=== PATIENT | female | born 1965 | race Caucasian/White ===

== ENCOUNTER 2016-07-20 14:21 | Outpatient (CLI) | payer OTHER | END 2016-07-20 14:22 | disposition home or self-care (01) | DX: Z12.31 Encounter for screening mammogram for malignant neoplasm of breast (principal); Z80.3 Family history of malignant neoplasm of breast ==

== ENCOUNTER 2016-08-11 07:16 | Outpatient (CLI) | payer OTHER | END 2016-08-11 07:17 | DX: Z51.81 Encounter for therapeutic drug level monitoring (principal); E78.5 Hyperlipidemia, unspecified; K76.0 Fatty (change of) liver, not elsewhere classified; E11.9 Type 2 diabetes mellitus without complications ==

== ENCOUNTER 2016-08-18 09:02 | Outpatient (CLI) | payer OTHER | END 2016-08-18 23:59 | disposition home or self-care (01) | LOC: LAB.WCP 09:02 | PROVIDERS: ATTEND Physician Assistant Medical | DX: M10.9 Gout, unspecified (principal) | CPT/HCPCS: 36415; 84550 ==

== ENCOUNTER 2016-08-19 09:35 | Outpatient (CLI) | payer OTHER ==
[2016-08-19 13:44] LABS: BASOPHILS % (AUTO) 0.4 %; EOSINOPHILS # (AUTO) 0.2 10^3/uL (0.0-0.7); EOSINOPHILS % (AUTO) 2.2 %; HCT - HEMATOCRIT 41.9 % (37.0-47.0); HGB - HEMOGLOBIN 14.2 g/dL (12.0-16.0); LYMPHOCYTES # (AUTO) 3.3 10^3/uL (1.5-3.5); MEAN CORPUSCULAR HEMOGLOBIN 28.7 pg (27.0-31.0); MEAN CORPUSCULAR VOLUME 84.5 fL (81.0-99.0); MEAN PLATELET VOLUME 10.9 fL (7.9-10.8); MONOCYTES # (AUTO) 0.5 10^3/uL (0.0-1.0); MONOCYTES % (AUTO) 5.8 %; NEUTROPHILS # (AUTO) 5.1 10^3/uL (1.5-6.6); NEUTROPHILS % (AUTO) 55.6 %; RED BLOOD COUNT 4.96 10^6/uL (4.20-5.40); RED CELL DISTRIBUTION WIDTH 12.8 % (12.0-15.0); UNCORRECTED WHITE BLOOD COUNT 9.2 x10^3/uL; WHITE BLOOD COUNT 9.2 x10^3/uL (4.8-10.8)
[2016-08-19 14:26] LABS: CALCIUM 10.2 mg/dL (8.5-10.3); POTASSIUM 3.9 mmol/L (3.5-5.0); URIC ACID 3.3 mg/dL (2.6-7.2)
== END 2016-08-19 09:36 | disposition home or self-care (01) ==
LOC: LAB.WCP 09:35
PROVIDERS: ATTEND Physician Assistant Medical
DX: M79.671 Pain in right foot (principal); M10.9 Gout, unspecified; Z79.899 Other long term (current) drug therapy
CPT/HCPCS: 36415; 80048; 84550; 85025; 85651

== ENCOUNTER 2017-01-19 15:00 | Outpatient (CLI) | payer OTHER ==
[2017-01-19 13:24] LABS: H. PYLORI IGG ANTIBODY Negative (Negative); HPYLORI NEG QC Negative (Negative); HPYLORI POS QC POSITIVE (Positive)
[2017-01-19 13:25] LABS: BASOPHILS # (AUTO) 0.1 10^3/uL (0.0-0.1); BASOPHILS % (AUTO) 0.7 %; EOSINOPHILS # (AUTO) 0.2 10^3/uL (0.0-0.7); EOSINOPHILS % (AUTO) 2.1 %; HCT - HEMATOCRIT 41.9 % (37.0-47.0); HGB - HEMOGLOBIN 14.3 g/dL (12.0-16.0); LYMPHOCYTES # (AUTO) 3.5 10^3/uL (1.5-3.5); LYMPHOCYTES % (AUTO) 43.2 %; MEAN CORPUSCULAR HEMOGLOBIN 28.6 pg (27.0-31.0); MEAN CORPUSCULAR HGB CONC 34.2 g/dL (32.0-36.0); MEAN CORPUSCULAR VOLUME 83.6 fL (81.0-99.0); MEAN PLATELET VOLUME 10.1 fL (7.9-10.8); MONOCYTES # (AUTO) 0.5 10^3/uL (0.0-1.0); NEUTROPHILS # (AUTO) 3.9 10^3/uL (1.5-6.6); NUCLEATED RED BLOOD CELLS AUTO 0.1 /100WBC; RED BLOOD COUNT 5.02 10^6/uL (4.20-5.40); RED CELL DISTRIBUTION WIDTH 12.8 % (12.0-15.0); UNCORRECTED WHITE BLOOD COUNT 8.1 x10^3/uL; WHITE BLOOD COUNT 8.1 x10^3/uL (4.8-10.8)
[2017-01-19 13:57] LABS: ALBUMIN/GLOBULIN RATIO 1.7 (1.0-2.2); BILIRUBIN,TOTAL 0.6 mg/dL (0.2-1.0); CALCIUM 9.9 mg/dL (8.5-10.3); CREATININE 1.1 mg/dL (0.4-1.0); POTASSIUM 3.7 mmol/L (3.5-5.0); TOTAL PROTEIN 7.2 g/dL (6.7-8.2)
== END 2017-01-19 15:01 | disposition home or self-care (01) ==
LOC: LAB.WCP 15:00
PROVIDERS: ATTEND Physician Assistant Medical
DX: R10.13 Epigastric pain (principal)
CPT/HCPCS: 36415; 80053; 83690; 85025; 87339

== ENCOUNTER 2017-04-19 07:10 | Outpatient (CLI) | payer OTHER ==
[2017-04-19 12:30] LABS: BASOPHILS % (AUTO) 0.6 %; EOSINOPHILS # (AUTO) 0.1 10^3/uL (0.0-0.7); EOSINOPHILS % (AUTO) 1.9 %; HGB - HEMOGLOBIN 15.2 g/dL (12.0-16.0); LYMPHOCYTES # (AUTO) 2.5 10^3/uL (1.5-3.5); MEAN CORPUSCULAR HEMOGLOBIN 28.7 pg (27.0-31.0); MEAN CORPUSCULAR HGB CONC 34.2 g/dL (32.0-36.0); MEAN CORPUSCULAR VOLUME 83.9 fL (81.0-99.0); MEAN PLATELET VOLUME 10.9 fL (7.9-10.8); MONOCYTES # (AUTO) 0.4 10^3/uL (0.0-1.0); MONOCYTES % (AUTO) 5.9 %; NEUTROPHILS # (AUTO) 3.7 10^3/uL (1.5-6.6); NEUTROPHILS % (AUTO) 54.6 %; PLT - PLATELET COUNT 309 10^3/uL (130-450); RED BLOOD COUNT 5.29 10^6/uL (4.20-5.40); WHITE BLOOD COUNT 6.8 x10^3/uL (4.8-10.8)
[2017-04-19 12:49] LABS: ALBUMIN 4.4 g/dL (3.2-5.5); ALBUMIN/GLOBULIN RATIO 1.5 (1.0-2.2); ALKALINE PHOSPHATASE 106 IU/L (42-121); ALT ALANINE AMINOTRANSFERASE 41 IU/L (10-60); AST ASPARTATE AMINOTRANSFERASE 31 IU/L (10-42); BILIRUBIN,TOTAL 0.5 mg/dL (0.2-1.0); BUN - BLOOD UREA NITROGEN 17 mg/dL (6-20); CALCIUM 9.6 mg/dL (8.5-10.3); CARBON DIOXIDE - CO2 28 mmol/L (21-32); CHLORIDE 89 mmol/L (101-111); CHOL/HDL RATIO 8.6 (<4.4); CHOLESTEROL 258 mg/dL; CREATININE 1.1 mg/dL (0.4-1.0); GFR - MDRD 52 (>89); GLUCOSE 477 mg/dL (70-100); HB2 TOTAL 16.6 g/dL; HDL CHOLESTEROL 30 mg/dL; HEMOGLOBIN A1C 2.1 g/dL; HEMOGLOBIN A1C % 13.7 % (4.6-6.2); SODIUM 129 mmol/L (135-145); TOTAL PROTEIN 7.4 g/dL (6.7-8.2)
[2017-04-19 13:13] LABS: LDL CHOLESTEROL,DIRECT 147 mg/dL; LDLD/HDL RATIO 4.9 (<4.4)
== END 2017-04-19 07:11 | disposition home or self-care (01) ==
LOC: LAB.WCP 07:10
PROVIDERS: ATTEND Physician Assistant Medical
DX: E11.49 Type 2 diabetes mellitus with other diabetic neurological complication (principal); R20.2 Paresthesia of skin
CPT/HCPCS: 36415; 80053; 80061; 82607; 83036; 85025; 85651

== ENCOUNTER 2017-05-25 14:37 | Outpatient (CLI) | payer OTHER ==
[2017-05-25 18:38] LABS: BASOPHILS # (AUTO) 0.1 10^3/uL (0.0-0.1); BASOPHILS % (AUTO) 0.6 %; EOSINOPHILS # (AUTO) 0.1 10^3/uL (0.0-0.7); EOSINOPHILS % (AUTO) 1.6 %; HGB - HEMOGLOBIN 14.9 g/dL (12.0-16.0); LYMPHOCYTES # (AUTO) 3.7 10^3/uL (1.5-3.5); LYMPHOCYTES % (AUTO) 44.3 %; MEAN CORPUSCULAR HEMOGLOBIN 29.9 pg (27.0-31.0); MEAN CORPUSCULAR HGB CONC 34.6 g/dL (32.0-36.0); MEAN CORPUSCULAR VOLUME 86.3 fL (81.0-99.0); MEAN PLATELET VOLUME 11.7 fL (7.9-10.8); MONOCYTES # (AUTO) 0.5 10^3/uL (0.0-1.0); MONOCYTES % (AUTO) 6.4 %; NEUTROPHILS # (AUTO) 3.9 10^3/uL (1.5-6.6); NEUTROPHILS % (AUTO) 47.1 %; PLT - PLATELET COUNT 314 10^3/uL (130-450); RED CELL DISTRIBUTION WIDTH 12.9 % (12.0-15.0); WHITE BLOOD COUNT 8.3 x10^3/uL (4.8-10.8)
== END 2017-05-25 14:38 | disposition home or self-care (01) ==
LOC: LAB.WCP 14:37
PROVIDERS: ATTEND Physician Assistant Medical
DX: K62.5 Hemorrhage of anus and rectum (principal)
CPT/HCPCS: 36415; 85025

== ENCOUNTER 2017-07-14 13:49 | Outpatient (CLI) | payer OTHER | END 2017-07-14 13:50 | disposition home or self-care (01) | LOC: DI 13:49 | PROVIDERS: ATTEND Internal Medicine Critical Care Medicine | DX: R06.02 Shortness of breath (principal) | CPT/HCPCS: 93306 ==

== ENCOUNTER 2017-08-02 09:07 | Emergency (ER) | payer OTHER ==
[2017-08-02] MEDS ORDERED: LIDOCAINE VISCOUS 2% 15 ML UDC MM STA (09:46)
[2017-08-02] MEDS ORDERED: SODIUM CHLORIDE 0.9% 1,000 ML IV ONE ×2 (09:46→11:52)
[2017-08-02] MEDS ORDERED: MAG HYDROX/AL HYDROX/SIMETH 30 ML UDC PO STA (09:46)
--- NOTE | 2017-08-02 09:49 | ED Physician Documentation ---
PD HPI CHEST PAIN - Stated complaint Stated Complaint: CHEST PX/R SIDE PX - Chief complaint Chief Complaint: Cardiac - History obtained from History obtained from: Patient - History of Present Illness Timing - onset: How many days ago (4) Timing - onset during: Rest Timing - duration: Days (4) Timing - details: Gradual onset, Still present, Waxing and waning Quality: Pressure, Sharp Location: Substernal, Right chest Radiation: Abdominal Improved by: Nothing Worsened by: Eating Associated symptoms: Diaphoresis. No: Shortness of air, Nausea, Vomiting, Feeling faint / dizzy, General Weakness, Palpitations, Cough Similar symptoms before: No diagnosis, Work up / diagnostics (has had echo and ETT) Recently seen: Other (has had echo and ETT) - Additional information Additional information: 52-year-old female has had some right-sided chest pain for the past 2 months and she has had some workup done of this including a normal exercise treadmill test and normal echocardiogram. She continues to have this pain and over the last 4 days it is become much worse. She is having some trouble when she goes to swallow she feels an increase in this pain and since last night the pain is been persistent and constant. Review of Systems Constitutional: denies: Fever Eyes: denies: Decreased vision Ears: denies: Ear pain Nose: denies: Congestion Throat: denies: Sore throat Cardiac: reports: Chest pain / pressure. denies: Palpitations, Pedal edema, Calf pain Respiratory: denies: Dyspnea, Cough GI: reports: Abdominal Pain. denies: Nausea, Vomiting, Constipation, Diarrhea : denies: Dysuria, Frequency Skin: denies: Rash PD PAST MEDICAL HISTORY - Past Medical History Past Medical History: Yes Cardiovascular: Hypertension, High cholesterol, Other Respiratory: Asthma, COPD Neuro: Headache/migraine Endocrine/Autoimmune: Type 2 diabetes GI: GERD, Colon polyps, Other : Renal insuffiency HEENT: None Psych: Depression Musculoskeletal: Gout, Other Derm: Eczema, Other - Past Surgical History General: Colonoscopy /[employer]: section, Hysterectomy - Present Medications Home Medications: Ambulatory Orders Medication Instructions Recorded Confirmed Albuterol Sulfate [Proair Hfa] 2 puffs PO Q4H PRN 08/20/13 09/16/16 Furosemide [Lasix] 40 mg PO DAILY PRN 08/20/13 09/16/16 Lansoprazole [Prevacid] 15 mg PO DAILY 08/20/13 09/16/16 Montelukast Sodium [Singulair] 10 mg PO DAILY 08/20/13 09/16/16 Spironolactone 100 mg PO DAILY 08/20/13 09/16/16 Cholecalciferol (Vitamin D3) 3,000 unit PO DAILY 12/16/13 09/16/16 [Vitamin D-3] Ipratropium/Albuterol [Duoneb] 3 ml INH QID 12/16/13 09/16/16 Albuterol Sulfate 1.25 mg IH Q4HR PRN 06/10/15 09/16/16 Chlorthalidone 25 mg PO Q3D PRN 06/10/15 09/16/16 Colchicine [Colcrys] 0.6 mg PO BID 06/10/15 09/16/16 DULoxetine [Cymbalta] 30 mg PO DAILY 06/10/15 09/16/16 Docusate Sodium 100Mg Capsule 100 mg PO BID 06/10/15 09/16/16 [Colace] Insulin Lispro Protamin/Lispro 40 - 50 unit SQ TIDWM 06/10/15 09/16/16 [Humalog Mix 75-25 Kwikpen] Ipratropium/Albuterol Sulfate 4 gm IH QID 06/10/15 09/16/16 [Combivent Respimat Inhal [place]] LORazepam [Ativan] 0.5 mg PO BID PRN 06/10/15 09/16/16 Diltiazem HCl [Cardizem LA] 240 mg PO DAILY 07/06/16 09/16/16 Dulaglutide [Trulicity] 1.5 mg SQ Q7D 07/06/16 09/16/16 Febuxostat [Uloric] 40 mg PO DAILY 07/06/16 09/16/16 Fluticasone 44 Mcg [Flovent] 1 puffs INH BID 07/06/16 09/16/16 Tiotropium Br/Olodaterol HCl 2 inh IH DAILY 07/06/16 09/16/16 [Stiolto Respimat Inhal [place]] Insulin Lispro [Humalog] 7 - 10 unit SQ TIDWM 09/16/16 09/16/16 Sucralfate [Carafate] 1 gm PO ACHS #30 tablet 08/02/17 - Allergies Allergies/Adverse Reactions: Allergies Allergy/AdvReac Type Severity Reaction Status Date / Time acetaminophen [From Vicodin] Allergy Severe Respiratory Verified 12/16/13 12:02 aclidinium bromide * Allergy Severe Anaphylaxis Verified 12/13/13 15:23 [From Tudorza Pressair] aspirin Allergy Severe Respiratory Verified 12/16/13 12:02 hydrocodone bitartrate * Allergy Severe Respiratory Verified 12/16/13 12:02 [From Vicodin] losartan potassium * Allergy Severe Respiratory Verified 12/16/13 12:02 [From Cozaar] theophylline Allergy Severe Respiratory Verified 12/16/13 12:02 tramadol HCl * [From Ultram] Allergy Severe Respiratory Verified 12/13/13 15:22 azithromycin [From Zithromax] Allergy Intermediate Rash Verified 12/16/13 12:02 codeine Allergy Intermediate Nausea Verified 12/16/13 12:02 levofloxacin [From Levaquin] Allergy Intermediate Rash Verified 12/16/13 12:02 Alcohol-ETOH Allergy Severe Respiratory Uncoded 12/16/13 12:03 - Social History Does the pt smoke?: No Smoking Status: Never smoker PD ED PE NORMAL - Vitals Vital signs reviewed: Yes (Hypertensive diastolic mild) - General General: Alert and oriented X 3, No acute distress, Well developed/nourished - HEENT HEENT: Atraumatic, PERRL, EOMI - Neck Neck: Supple, no meningeal sign - Cardiac Cardiac: RRR, No murmur - Respiratory Respiratory: No respiratory distress, Clear bilaterally, Other (There is no specific chest wall tenderness.) - Abdomen Abdomen: Soft, Non tender, Other (There is some pain transmitted into the chest with palpation of the liver.) - Back Back: No CVA TTP, No spinal TTP - Derm Derm: Normal color, Warm and dry, No rash - Extremities Extremities: No deformity, No edema - Neuro Neuro: Alert and oriented X 3, No motor deficit, No sensory deficit, Normal speech Eye Opening: Spontaneous Motor: Obeys Commands Verbal: Oriented GCS Score: 15 - Psych Psych: Normal mood, Normal affect Results - Vitals Vitals: Vital Signs - 24 hr 08/02/17 08/02/17 09:12 11:20 Temperature 35.6 C L Heart Rate 84 80 Respiratory 17 18 Rate Blood Pressure 127/95 H 130/86 H O2 Saturation 100 98 Oxygen O2 Source Room air - EKG (time done) 0912 Rate: Rate (enter#) (86) Rhythm: NSR QRS: Low voltage Compare to prior EKG: Old EKG unavailable Computer interpretation: Agree with computer - Labs Labs: Laboratory Tests 08/02/17 08/02/17 08/02/17 09:26 09:26 09:26 WBC 9.0 RBC 5.55 H Hgb 16.1 H Hct 46.5 MCV 83.8 MCH 28.9 MCHC 34.5 RDW 12.9 Plt Count 313 MPV 10.1 Neut # 4.8 Lymph # 3.4 [place] # 0.6 Eos # 0.2 Baso # 0.1 Absolute Nucleated RBC 0.01 Nucleated RBC % 0.1 Sodium 128 L Potassium 3.0 L Chloride 85 L Carbon Dioxide 29 Anion Gap 14.0 H BUN 22 H Creatinine 1.2 H Estimated GFR (MDRD) 47 L Glucose 349 H POC Whole Bld Glucose Calcium 10.1 Total Bilirubin 0.8 AST 32 ALT 44 Alkaline Phosphatase 94 Troponin I < 0.04 Total Protein 8.5 H Albumin 5.4 Globulin 3.1 Albumin/Globulin Ratio 1.7 Lipase 27 TSH Urine Color Urine Clarity Urine pH Ur Specific [place] Urine Protein Urine Glucose (UA) Urine Ketones Urine Occult Blood Urine Nitrite Urine Bilirubin Urine Urobilinogen Ur Leukocyte Esterase Ur Microscopic Review Urine Culture Comments 08/02/17 08/02/17 08/02/17 09:26 11:40 12:44 WBC RBC Hgb Hct MCV MCH MCHC RDW Plt Count MPV Neut # Lymph # [place] # Eos # Baso # Absolute Nucleated RBC Nucleated RBC % Sodium Potassium Chloride Carbon Dioxide Anion Gap BUN Creatinine Estimated GFR (MDRD) Glucose POC Whole Bld Glucose 243 H Calcium Total Bilirubin AST ALT Alkaline Phosphatase Troponin I Total Protein Albumin Globulin Albumin/Globulin Ratio Lipase TSH 2.11 Urine Color YELLOW Urine Clarity CLEAR Urine pH 6.5 Ur Specific [place] <=1.005 Urine Protein NEGATIVE Urine Glucose (UA) >=1000 H Urine Ketones NEGATIVE Urine Occult Blood NEGATIVE Urine Nitrite NEGATIVE Urine Bilirubin NEGATIVE Urine Urobilinogen 0.2 (NORMAL) Ur Leukocyte Esterase NEGATIVE Ur Microscopic Review NOT INDICATED Urine Culture Comments NOT INDICATED - Rads (name of study) 2 view chest Radiology: Prelim report reviewed (Impression: Normal two-view chest radiography.), EMP read indepedently, See rad report CT chest angio Radiology: Prelim report reviewed (Impression: 1. Normal pulmonary CT angiogram. No pulmonary emboli. 2. Small pleural-based left lobe density. If patient's is high risk, follow-up noncontrast CT could be considered in 12 months to confirm stability.), EMP read indepedently, See rad report Procedures - IVC sono (time) 7390 Bedside IVC sono: IVC measures (cm) (1.27), IVC collapsed c insp (cm) (complete) , Dehydration (est 1 liter deficit) PD MEDICAL DECISION MAKING - ED course Complexity details: reviewed results, re-evaluated patient, considered differential, d/w patient ED course: 52-year-old female with right-sided chest pain has a worsening of this pain over the last 4 days. Here in the emergency department she is administered a GI cocktail consisting of 10 ml of viscous lidocaine and 30 mL of Mylanta and with this she has complete resolution of her pain. Her studies were concerning for a lucency on her chest x-ray and CT of the chest was obtained to rule out dissection and aneurysm in the chest. This study was negative and did not demonstrate any other abnormality within the chest to explain the patient's pain. She will need follow-up for her chest CT in a year. Departure - Departure Disposition: 01 Home, Self Care Clinical Impression: Esophagitis Condition: Stable Instructions: Esophagitis Follow-Up: Aileen Mars PA-C [Primary Care Provider] - Prescriptions: Sucralfate [Carafate] 1 gm PO ACHS #30 tablet Comments: Today you were significantly dehydrated from your diabetes. I recommend you not take your lasix and spironlolactone for 2 days and work extra hard at controlling your blood sugar. Discharge Date/Time: 08/02/17 12:50
[2017-08-02 10:06] LABS: BASOPHILS # (AUTO) 0.1 10^3/uL (0.0-0.1); BASOPHILS % (AUTO) 0.8 %; EOSINOPHILS # (AUTO) 0.2 10^3/uL (0.0-0.7); EOSINOPHILS % (AUTO) 1.7 %; HGB - HEMOGLOBIN 16.1 g/dL (12.0-16.0); LYMPHOCYTES # (AUTO) 3.4 10^3/uL (1.5-3.5); LYMPHOCYTES % (AUTO) 37.7 %; MEAN CORPUSCULAR HEMOGLOBIN 28.9 pg (27.0-31.0); MEAN CORPUSCULAR HGB CONC 34.5 g/dL (32.0-36.0); MEAN CORPUSCULAR VOLUME 83.8 fL (81.0-99.0); MEAN PLATELET VOLUME 10.1 fL (7.9-10.8); MONOCYTES # (AUTO) 0.6 10^3/uL (0.0-1.0); MONOCYTES % (AUTO) 6.5 %; NEUTROPHILS # (AUTO) 4.8 10^3/uL (1.5-6.6); NEUTROPHILS % (AUTO) 53.3 %; PLT - PLATELET COUNT 313 10^3/uL (130-450); RED BLOOD COUNT 5.55 10^6/uL (4.20-5.40); RED CELL DISTRIBUTION WIDTH 12.9 % (12.0-15.0)
[2017-08-02 10:14] LABS: ALBUMIN 5.4 g/dL (3.2-5.5); ALBUMIN/GLOBULIN RATIO 1.7 (1.0-2.2); BILIRUBIN,TOTAL 0.8 mg/dL (0.2-1.0); CALCIUM 10.1 mg/dL (8.5-10.3); CREATININE 1.2 mg/dL (0.4-1.0); TOTAL PROTEIN 8.5 g/dL (6.7-8.2)
[2017-08-02] MEDS ORDERED: POTASSIUM BICARB 25 MEQ TABLET PO STA (10:21)
--- NOTE | 2017-08-02 10:45 | XRAY Report ---
EXAM: CHEST RADIOGRAPHY EXAM DATE: 08/02/2017 10:22 AM. CLINICAL HISTORY: Right sided chest pain. COMPARISON: 05/16/2017. TECHNIQUE: 2 views. FINDINGS: Lungs/Pleura: No focal opacities evident. No pleural effusion. No pneumothorax. Normal volumes. Mediastinum: Heart and mediastinal contours are unremarkable. Other: None. IMPRESSION: Normal 2-view chest radiography. [facility] Referring Provider Line: [phone] SITE ID: [id number]
--- NOTE | 2017-08-02 10:45 | XRAY Preliminary Report ---
Exam: XR CHEST 2 VIEW X-RAY IMPRESSION: Normal 2-view chest radiography. [facility] SITE ID: [id number]
[2017-08-02] MEDS ORDERED: IOPAMIDOL-300 100 ML VIAL ONE (11:18)
[2017-08-02 11:30] VITALS: BP 130/86
[2017-08-02] MEDS ORDERED: IOPAMIDOL-300 100 ML VIAL IVP ONE (11:30)
--- NOTE | 2017-08-02 11:57 | CT Report ---
EXAM: CT ANGIOGRAM CHEST EXAM DATE: 08/02/2017 11:33 AM. CLINICAL HISTORY: Right sided chest pain. COMPARISON: No chest CT comparison. Abdomen pelvis CT 08/02/2013.. TECHNIQUE: Routine helical imaging was performed through the chest in the pulmonary arterial phase. I V Contrast: 100 cc Isovue-300. Reconstructions: Coronal 3-D MIP reconstructions.Sagittal and coronal. In accordance with CT protocol optimization, one or more of the following dose reduction techniques w ere utilized for this exam: automated exposure control, adjustment of mA and/or KV based on patient s ize, or use of iterative reconstructive technique. FINDINGS: Pulmonary Arteries: Diagnostic quality: Adequate through the segmental arteries. No evidence for acute or chronic pulmona ry emboli. RV/LV is within normal limits. There is no interventricular septal bowing. There is minimal reflux of contrast material in the IVC. Lungs/Pleura: Small triangular/linear density along the medial aspect of the upper left major fissure (5/42, sagittal image 71) likely represents focal scarring but it is not specific. Mediastinum: Normal. No cardiac enlargement or adenopathy. Thoracic Aorta: Unremarkable. Upper Abdomen: Unremarkable. Other: None. IMPRESSION: 1. Normal pulmonary CT angiogram. No pulmonary emboli. 2. Small pleural-based left upper lobe density. If the patient is high risk, a follow-up noncontrast chest CT could be considered in 12 months to confirm stability. [facility] Referring Provider Line: [phone] SITE ID: [id number]
--- NOTE | 2017-08-02 11:57 | CT Preliminary Report ---
Exam: CT CHEST ANGIO (AORTA) IMPRESSION: 1. Normal pulmonary CT angiogram. No pulmonary emboli. 2. Small pleural-based left upper lobe density. If the patient is high risk, a follow-up noncontrast chest CT could be considered in 12 months to confirm stability. [facility] SITE ID: [id number]
[2017-08-02 12:06] LABS: BILIRUBIN,URINE NEGATIVE (NEGATIVE); GLUCOSE, URINE (UA) >=1000 mg/dL (NEGATIVE); KETONES,URINE (UA) NEGATIVE (NEGATIVE); LEUKOCYTE ESTERASE, URINE NEGATIVE (NEGATIVE); NITRITE,URINE NEGATIVE (NEGATIVE); OCCULT BLOOD,URINE NEGATIVE (NEGATIVE); PH,URINE 6.5 PH (5.0-7.5); PROTEIN,URINE NEGATIVE (NEGATIVE); UROBILINOGEN,URINE 0.2 (NORMAL) E.U./dL (NORMAL)
[2017-08-02 12:07] LABS: CLARITY,URINE CLEAR (CLEAR)
== END 2017-08-02 12:50 | disposition home or self-care (01) ==
LOC: ED 09:07
DX: K20.9 Esophagitis, unspecified (principal); E11.9 Type 2 diabetes mellitus without complications; E86.0 Dehydration; I10 Essential (primary) hypertension; E78.00 Pure hypercholesterolemia, unspecified; Z79.4 Long term (current) use of insulin
CPT/HCPCS: 36415; 71046; 71275; 80053; 81003; 83690; 84443; 84484; 85025; 93005; 96360; 99284; A9270; Q9967; 81001; 87086

== ENCOUNTER 2017-08-03 08:05 | Outpatient (CLI) | payer OTHER ==
[2017-08-03 13:16] LABS: ALBUMIN 4.3 g/dL (3.2-5.5); ALBUMIN/GLOBULIN RATIO 1.6 (1.0-2.2); ALKALINE PHOSPHATASE 73 IU/L (42-121); ALT ALANINE AMINOTRANSFERASE 40 IU/L (10-60); AST ASPARTATE AMINOTRANSFERASE 35 IU/L (10-42); BILIRUBIN,TOTAL 0.7 mg/dL (0.2-1.0); BUN - BLOOD UREA NITROGEN 14 mg/dL (6-20); CALCIUM 9.4 mg/dL (8.5-10.3); CARBON DIOXIDE - CO2 28 mmol/L (21-32); CHLORIDE 95 mmol/L (101-111); CHOL/HDL RATIO 8.8 (<4.4); CHOLESTEROL 254 mg/dL; GFR - MDRD 58 (>89); GLUCOSE 312 mg/dL (70-100); HDL CHOLESTEROL 29 mg/dL; LDL CHOLESTEROL,CALCULATED 145 mg/dL; SODIUM 132 mmol/L (135-145); VLDL CHOLESTEROL 80 mg/dL
[2017-08-03 13:50] LABS: HB2 TOTAL 15.7 g/dL; HEMOGLOBIN A1C 1.7 g/dL; HEMOGLOBIN A1C % 12.1 % (4.6-6.2)
== END 2017-08-03 08:06 | disposition home or self-care (01) ==
LOC: LAB.WCP 08:05
PROVIDERS: ATTEND Physician Assistant Medical
DX: E11.49 Type 2 diabetes mellitus with other diabetic neurological complication (principal)
CPT/HCPCS: 36415; 80053; 80061; 83036; 83721

== ENCOUNTER 2017-08-31 09:50 | Outpatient (CLI) | payer OTHER ==
[2017-08-31 13:18] LABS: BASOPHILS # (AUTO) 0.1 10^3/uL (0.0-0.1); BASOPHILS % (AUTO) 0.7 %; EOSINOPHILS # (AUTO) 0.1 10^3/uL (0.0-0.7); EOSINOPHILS % (AUTO) 1.7 %; HGB - HEMOGLOBIN 15.4 g/dL (12.0-16.0); LYMPHOCYTES # (AUTO) 3.5 10^3/uL (1.5-3.5); LYMPHOCYTES % (AUTO) 42.1 %; MEAN CORPUSCULAR HEMOGLOBIN 28.8 pg (27.0-31.0); MEAN CORPUSCULAR HGB CONC 34.4 g/dL (32.0-36.0); MEAN CORPUSCULAR VOLUME 83.7 fL (81.0-99.0); MEAN PLATELET VOLUME 11.1 fL (7.9-10.8); MONOCYTES # (AUTO) 0.5 10^3/uL (0.0-1.0); MONOCYTES % (AUTO) 5.7 %; NEUTROPHILS # (AUTO) 4.2 10^3/uL (1.5-6.6); NEUTROPHILS % (AUTO) 49.8 %; PLT - PLATELET COUNT 288 10^3/uL (130-450); RED BLOOD COUNT 5.36 10^6/uL (4.20-5.40); RED CELL DISTRIBUTION WIDTH 12.5 % (12.0-15.0); WHITE BLOOD COUNT 8.4 x10^3/uL (4.8-10.8)
[2017-08-31 13:28] LABS: ALBUMIN 4.5 g/dL (3.2-5.5); ALBUMIN/GLOBULIN RATIO 1.6 (1.0-2.2); BILIRUBIN,TOTAL 0.8 mg/dL (0.2-1.0); CALCIUM 10.1 mg/dL (8.5-10.3); CREATININE 1.2 mg/dL (0.4-1.0); TOTAL PROTEIN 7.4 g/dL (6.7-8.2)
[2017-08-31 13:48] LABS: PLATELET ESTIMATE, MANUAL NORMAL (130-450,000) (NORMAL); PLATELET MORPHOLOGY 1+ GIANT PLATELETS (NORMAL); RBC MORPHOLOGY (MULTIPLE) NORMAL APPEARANCE (NORMAL)
== END 2017-08-31 09:51 | disposition home or self-care (01) ==
LOC: LAB.WCP 09:50
PROVIDERS: ATTEND Family Medicine
DX: E86.0 Dehydration (principal); R42 Dizziness and giddiness
CPT/HCPCS: 36415; 80053; 85025

== ENCOUNTER 2017-09-05 08:00 | Outpatient (CLI) | payer OTHER ==
[2017-09-05 13:34] LABS: CALCIUM 9.7 mg/dL (8.5-10.3); CREATININE 1.1 mg/dL (0.4-1.0)
== END 2017-09-05 08:01 | disposition home or self-care (01) ==
LOC: LAB.WCP 08:00
PROVIDERS: ATTEND Family Medicine
DX: E86.0 Dehydration (principal); E87.6 Hypokalemia; R42 Dizziness and giddiness
CPT/HCPCS: 36415; 80048

== ENCOUNTER 2017-10-17 11:22 | Emergency (ER) | payer OTHER ==
[2017-10-17 11:38] VITALS: BP 142/92
== END 2017-10-17 12:18 | disposition left against medical advice (07) ==
LOC: ED 11:22
DX: Z53.21 Procedure and treatment not carried out due to patient leaving prior to being seen by health care provider (principal)

== ENCOUNTER 2017-11-24 07:40 | Day surgery (SDC) | payer OTHER ==
[~2017-11-24 07:40] MED LIST: LIDO GARGLE 30 ML BOTTLE ONE; LIDO GARGLE 30 ML BOTTLE PO ONE
[2017-11-24] MEDS ORDERED: LACTATED RINGERS 1,000 ML IV ONE (08:07)
--- NOTE | 2017-11-24 08:15 | ANESTHESIA ---
Pre-Anesthesia VS, & Labs - Diagnosis GI Bleed - Procedure Colonoscopy and EGD Vital Signs: Temp Pulse Resp BP Pulse Ox 36 C L 16 126/96 H 96 11/24/17 07:49 11/24/17 07:49 11/24/17 07:49 11/24/17 07:49 Pulse 99 Height 5 ft 6 in Weight (kg) 93.6 kg Body Mass Index 33.0 - NPO >8 hours Last Fluid Intake: 530 am - Is Patient ?: No Home Medications and Allergies Home Medications: Ambulatory Orders Medication Instructions Recorded Confirmed Albuterol Sulfate [Proair Hfa] 2 puffs PO Q4H PRN 08/20/13 11/24/17 Furosemide [Lasix] 40 mg PO DAILY PRN 08/20/13 11/24/17 Lansoprazole [Prevacid] 30 mg PO BID 08/20/13 11/24/17 Montelukast Sodium [Singulair] 10 mg PO DAILY 08/20/13 11/24/17 Spironolactone 100 mg PO DAILY 08/20/13 11/24/17 Cholecalciferol (Vitamin D3) 3,000 unit PO DAILY 12/16/13 11/24/17 [Vitamin D-3] Albuterol Sulfate 1.25 mg IH Q4HR PRN 06/10/15 11/24/17 Colchicine [Colcrys] 0.6 mg PO PRN PRN 06/10/15 11/24/17 DULoxetine [Cymbalta] 60 mg PO DAILY 06/10/15 11/24/17 Ipratropium/Albuterol Sulfate 4 gm IH QID 06/10/15 11/24/17 [Combivent Respimat Inhal [place]] LORazepam [Ativan] 0.5 mg PO BID PRN 06/10/15 11/24/17 Diltiazem HCl [Cardizem LA] 240 mg PO PRN PRN 07/06/16 11/24/17 Tiotropium Br/Olodaterol HCl 2 inh IH PRN PRN 07/06/16 11/24/17 [Stiolto Respimat Inhal [place]] Insulin Lispro [Humalog] 0 - 24 unit SQ DAILY 09/16/16 11/24/17 Sucralfate [Carafate] 1 gm PO ACHS #30 tablet 08/02/17 11/24/17 Insulin Glargine [Lantus Solostar] 20 units SQ DAILY PM 11/23/17 11/24/17 Allergies/Adverse Reactions: Allergies Allergy/AdvReac Type Severity Reaction Status Date / Time acetaminophen [From Vicodin] Allergy Severe Respiratory Verified 11/24/17 08:02 aclidinium bromide * Allergy Severe Anaphylaxis Verified 11/24/17 08:02 [From Tudorza Pressair] aspirin Allergy Severe Respiratory Verified 11/24/17 08:02 hydrocodone bitartrate * Allergy Severe Respiratory Verified 11/24/17 08:02 [From Vicodin] losartan potassium * Allergy Severe Respiratory Verified 11/24/17 08:02 [From Cozaar] theophylline Allergy Severe Respiratory Verified 11/24/17 08:02 tramadol HCl * [From Ultram] Allergy Severe Respiratory Verified 11/24/17 08:02 azithromycin [From Zithromax] Allergy Intermediate Rash Verified 11/24/17 08:02 codeine Allergy Intermediate Nausea Verified 11/24/17 08:02 levofloxacin [From Levaquin] Allergy Intermediate Rash Verified 11/24/17 08:02 Alcohol-ETOH Allergy Severe Respiratory Uncoded 11/24/17 08:02 Anes History & Medical History - Anesthetic History Anesthesia Complications: reports: No previous complications Family history of Anesthesia Complications: Denies Family history of Malignant Hyperthermia: Denies - Medical History Cardiovascular: reports: Hypertension, High cholesterol, Other Pulmonary: reports: Asthma, COPD Gastrointestinal: reports: GERD, Colon polyps, Other Urinary: reports: Renal insuffiency, Other (History of acute renal failure) Neuro: reports: None, Peripheral neuropathy (Numbness in hands and feet) Musculoskeletal: reports: Gout Endocrine/Autoimmune: reports: Type 2 diabetes Skin: reports: Eczema, Other Smoking Status: Never smoker Psychosocial: reports: Depression, Anxiety - Surgical History General: Cholecystectomy, Colonoscopy Gynecologic: section, Hysterectomy Orthopedic: Spine surgery, Other (ACDF neck, L5-S1 laminectomy) Exam General: Alert, Oriented x3, Cooperative, No acute distress Dental: WNL Mouth Openin Fingerbreadth Neck Mobility: Reduced Mallampati classification: II Thyromental Distance: 4-6 cm Respiratory: Lungs clear, Normal breath sounds, No respiratory distress, No accessory muscle use Cardiovascular: Regular rate, Normal S1, Normal S2, No murmurs Mental/Cognitive Status: Alert/Oriented X3, Normal for patient Cognitive Status: Within normal limits Plan Anesthesia Type: MAC Consent for Procedure(s) Verified and Reviewed: Yes Code Status: Attempt Resuscitation ASA classification: 3-Severe systemic disease Is this case an emergency?: No
[2017-11-24] MEDS ORDERED: MIDAZOLAM 2 MG/2 ML VIAL ONE (08:25)
[2017-11-24] MEDS ORDERED: fentaNYL 250 MCG/5 ML VIAL IVP ONE (08:40)
[2017-11-24] MEDS ORDERED: MIDAZOLAM 2 MG/2 ML VIAL IVP ONE ×2 (08:40→09:01)
[2017-11-24] MEDS ORDERED: LIDO GARGLE 30 ML BOTTLE PO ONE (08:50)
[2017-11-24] MEDS ORDERED: PROPOFOL 1000 MG/100 ML IV ONE (09:01)
[2017-11-24 10:30] VITALS: BP 134/92
== END 2017-11-24 07:41 | disposition home or self-care (01) ==
LOC: SDS 07:40
PROVIDERS: ATTEND Surgery
PROC: 0DBE8ZX Excision of Large Intestine, Via Natural or Artificial Opening Endoscopic, Diagnostic (ICD-10-PCS; 2017-11-24)
PROC: 0DB98ZX Excision of Duodenum, Via Natural or Artificial Opening Endoscopic, Diagnostic (ICD-10-PCS; principal; 2017-11-24 08:30)
PROC: 0DB68ZX Excision of Stomach, Via Natural or Artificial Opening Endoscopic, Diagnostic (ICD-10-PCS; 2017-11-24 08:30)
DX: K92.1 Melena (principal); R10.13 Epigastric pain; K44.9 Diaphragmatic hernia without obstruction or gangrene; K64.8 Other hemorrhoids; K58.9 Irritable bowel syndrome, unspecified; K21.9 Gastro-esophageal reflux disease without esophagitis; Z86.010 Personal history of colon polyps; J44.9 Chronic obstructive pulmonary disease, unspecified; E11.42 Type 2 diabetes mellitus with diabetic polyneuropathy; E11.22 Type 2 diabetes mellitus with diabetic chronic kidney disease; N18.9 Chronic kidney disease, unspecified; I12.9 Hypertensive chronic kidney disease with stage 1 through stage 4 chronic kidney disease, or unspecified chronic kidney disease; F32.9 Major depressive disorder, single episode, unspecified; F41.9 Anxiety disorder, unspecified; E78.5 Hyperlipidemia, unspecified; Z79.4 Long term (current) use of insulin; Z79.899 Other long term (current) drug therapy
CPT/HCPCS: 43239; 45380; A9270; J3010; J7120

== ENCOUNTER 2018-05-01 15:03 | Outpatient (CLI) | payer BC | END 2018-05-01 15:04 | disposition critical access hospital (66) | LOC: EMS 15:03 | PROVIDERS: ATTEND Surgery | DX: R06.02 Shortness of breath (principal); R06.2 Wheezing | CPT/HCPCS: A0425; A0433 ==

== ENCOUNTER 2018-05-01 15:19 | Observation (INO) | payer BC, OTHER ==
[2018-05-01] MEDS ORDERED: ALBUTEROL NEB 2.5 MG/3 ML INH STA (15:51)
[2018-05-01] MEDS ORDERED: methylPREDNISolone SUCCINATE 125 MG/2 ML VIAL IVP STA (15:51)
--- NOTE | 2018-05-01 15:52 | ED Physician Documentation ---
PD HPI DYSPNEA - Stated complaint Stated Complaint: SOA - Chief complaint Chief Complaint: Resp - History obtained from History obtained from: Patient, Family, EMS - History of Present Illness Timing - onset: Other (This is a 53-year-old woman with's persistent asthma at baseline uses only rescue inhaler. She is been sick for about 9 days with cough that is productive, sinus pain, and increasing shortness of breath despite increased use of her rescue inhaler and nebulizers at home as well as starting prednisone 40 mg a day about a week ago. She is also been seen in the emergency department at [facility] twice, per her report had a negative flu swab and negative chest x-ray x2. She was started on doxycycline 2 days ago but still has persistent and at times severe dyspnea and was sent here from the office for potential admission. She denies any fevers.) Review of Systems Ten Systems: 10 systems reviewed and negative Constitutional: denies: Fever, Chills Cardiac: denies: Chest pain / pressure, Palpitations Respiratory: reports: Dyspnea, Cough GI: denies: Abdominal Pain, Nausea, Vomiting PD PAST MEDICAL HISTORY - Past Medical History Cardiovascular: Hypertension, High cholesterol, Other Respiratory: Asthma, COPD Neuro: None, Peripheral neuropathy Endocrine/Autoimmune: Type 2 diabetes GI: GERD, Colon polyps, Other : Renal insuffiency, Other HEENT: None Psych: Depression Musculoskeletal: Gout Derm: Eczema, Other - Past Surgical History General: Cholecystectomy, Colonoscopy Ortho: Spine surgery, Other /[employer]: section, Hysterectomy - Present Medications Home Medications: Ambulatory Orders Medication Instructions Recorded Confirmed Albuterol Sulfate [Proair Hfa] 2 puffs PO Q3H PRN 08/20/13 05/01/18 Furosemide [Lasix] 40 mg PO DAILY PRN 08/20/13 11/24/17 Lansoprazole [Prevacid] 30 mg PO BID 08/20/13 11/24/17 Montelukast Sodium [Singulair] 10 mg PO QPM 08/20/13 05/01/18 Spironolactone 100 mg PO DAILY 08/20/13 11/24/17 Cholecalciferol (Vitamin D3) 3,000 unit PO DAILY 12/16/13 11/24/17 [Vitamin D-3] Albuterol Sulfate 1.25 mg IH Q4HR PRN 06/10/15 11/24/17 Colchicine [Colcrys] 0.6 mg PO PRN PRN 06/10/15 11/24/17 DULoxetine [Cymbalta] 60 mg PO DAILY 06/10/15 05/01/18 Ipratropium/Albuterol Sulfate 4 gm IH QID 06/10/15 11/24/17 [Combivent Respimat Inhal [place]] LORazepam [Ativan] 0.5 mg PO BID PRN 06/10/15 11/24/17 Diltiazem HCl [Cardizem LA] 240 mg PO PRN PRN 07/06/16 11/24/17 Insulin Lispro [Humalog] 0 - 24 unit SQ DAILY 09/16/16 11/24/17 Insulin Glargine [Lantus Solostar] 20 units SQ DAILY PM 11/23/17 11/24/17 Prednisone 40 mg ORAL DAILY 05/01/18 05/01/18 - Allergies Allergies/Adverse Reactions: Allergies Allergy/AdvReac Type Severity Reaction Status Date / Time acetaminophen [From Vicodin] Allergy Severe Respiratory Verified 05/01/18 15:28 aclidinium bromide * Allergy Severe Anaphylaxis Verified 05/01/18 15:28 [From Tudorza Pressair] aspirin Allergy Severe Respiratory Verified 05/01/18 15:28 hydrocodone bitartrate * Allergy Severe Respiratory Verified 05/01/18 15:28 [From Vicodin] losartan potassium * Allergy Severe Respiratory Verified 05/01/18 15:28 [From Cozaar] theophylline Allergy Severe Respiratory Verified 05/01/18 15:28 tramadol HCl * [From Ultram] Allergy Severe Respiratory Verified 05/01/18 15:28 azithromycin [From Zithromax] Allergy Intermediate Rash Verified 05/01/18 15:28 codeine Allergy Intermediate Nausea Verified 05/01/18 15:28 levofloxacin [From Levaquin] Allergy Intermediate Rash Verified 05/01/18 15:28 Alcohol-ETOH Allergy Severe Respiratory Uncoded 05/01/18 15:28 - Social History Does the pt smoke?: No Smoking Status: Never smoker Does the pt drink ETOH?: No Does the pt have substance abuse?: No - Immunizations Immunizations are current?: Yes PD ED PE NORMAL - Vitals Vital signs reviewed: Yes - General General: Alert and oriented X 3, Well developed/nourished - HEENT HEENT: Ears normal, Pharynx benign - Neck Neck: Supple, no meningeal sign, No bony TTP - Cardiac Cardiac: RRR, No murmur - Respiratory Respiratory: Other (Speaking short but full sentences but not full paragraphs. Mildly tachypneic and wheezy throughout with moderate air motion. No focal findings.) - Abdomen Abdomen: Soft, Non tender - Back Back: No CVA TTP, No spinal TTP - Derm Derm: Normal color, Warm and dry - Extremities Extremities: No edema, No calf tenderness / cord - Neuro Neuro: Alert and oriented X 3, Normal speech - Psych Psych: Normal mood, Normal affect Results - Vitals Vitals: Vital Signs - 24 hr 05/01/18 05/01/18 05/01/18 15:20 15:27 15:56 Temperature 35.5 C L Heart Rate 103 H 101 H 95 Respiratory 28 H 26 H 24 Rate Blood Pressure 156/72 H 142/96 H O2 Saturation 100 100 99 05/01/18 05/01/18 05/01/18 16:10 16:12 16:30 Temperature Heart Rate 97 97 98 Respiratory 14 25 H 17 Rate Blood Pressure 141/95 H 144/92 H O2 Saturation 99 99 05/01/18 17:00 Temperature Heart Rate 98 Respiratory 16 Rate Blood Pressure 144/92 H O2 Saturation 99 Oxygen O2 Source Room air - EKG (time done) 1527 Rate: Rate (enter#) (95) Rhythm: NSR [place]: Normal Intervals: Normal [place] QRS: Normal Ischemia: Normal ST segments Computer interpretation: Agree with computer - Labs Labs: Laboratory Tests 05/01/18 05/01/18 05/01/18 16:08 16:08 16:08 WBC 9.0 RBC 5.30 Hgb 15.1 Hct 43.8 MCV 82.6 MCH 28.5 MCHC 34.5 RDW 13.1 Plt Count 303 MPV 9.5 Manual Slide Review Indicated Sodium 136 Potassium 3.0 L Chloride 100 L Carbon Dioxide 22 Anion Gap 14.0 H BUN 15 Creatinine 0.9 Estimated GFR (MDRD) 65 L Glucose 201 H Calcium 10.1 Total Bilirubin 0.5 AST 36 ALT 45 Alkaline Phosphatase 98 Troponin I < 0.04 Total Protein 7.5 Albumin 4.1 Globulin 3.4 Albumin/Globulin Ratio 1.2 Lipase 27 PD MEDICAL DECISION MAKING - ED course ED course: 53-year-old woman with status asthmaticus which is failed outpatient treatment. She received a triple neb after the DuoNeb she got on route here without much change in her status. Her vital signs are okay but she does appear pretty winded and is persistently wheezy and tight. Spoke with Dr. Hilton for observation at 1708. Departure - Departure Disposition: ED Place in Observation Clinical Impression: Status asthmaticus Qualifiers: Asthma severity: moderate Asthma persistence: persistent Qualified Code(s): J45.42 - Moderate persistent asthma with status asthmaticus Condition: Serious
[2018-05-01 16:17] LABS: BASOPHILS # (AUTO) 0.1 10^3/uL (0.0-0.1); BASOPHILS % (AUTO) 1.3 %; EOSINOPHILS # (AUTO) 0.2 10^3/uL (0.0-0.7); HGB - HEMOGLOBIN 15.1 g/dL (12.0-16.0); LYMPHOCYTES # (AUTO) 4.6 10^3/uL (1.5-3.5); LYMPHOCYTES % (AUTO) 51.8 %; MEAN CORPUSCULAR HEMOGLOBIN 28.5 pg (27.0-31.0); MEAN CORPUSCULAR HGB CONC 34.5 g/dL (32.0-36.0); MEAN CORPUSCULAR VOLUME 82.6 fL (81.0-99.0); MEAN PLATELET VOLUME 9.5 fL (7.9-10.8); MONOCYTES # (AUTO) 0.4 10^3/uL (0.0-1.0); MONOCYTES % (AUTO) 4.5 %; NEUTROPHILS # (AUTO) 3.6 10^3/uL (1.5-6.6); NEUTROPHILS % (AUTO) 40.4 %; PLT - PLATELET COUNT 303 10^3/uL (130-450); RED CELL DISTRIBUTION WIDTH 13.1 % (12.0-15.0)
[2018-05-01 16:29] LABS: ALBUMIN 4.1 g/dL (3.2-5.5); ALBUMIN/GLOBULIN RATIO 1.2 (1.0-2.2); BILIRUBIN,TOTAL 0.5 mg/dL (0.2-1.0); CALCIUM 10.1 mg/dL (8.5-10.3); CREATININE 0.9 mg/dL (0.4-1.0); TOTAL PROTEIN 7.5 g/dL (6.7-8.2)
[2018-05-01] MEDS ORDERED: oxyCODONE 5 MG TABLET PO PRN (17:15)
[2018-05-01] MEDS ORDERED: ONDANSETRON 4 MG/2 ML VIAL IVP PRN (17:15)
[2018-05-01] MEDS ORDERED: SODIUM CHLORIDE FLUSH 0.9% 10 ML SYRINGE IVP PRN (17:15)
[2018-05-01] MEDS ORDERED: ONDANSETRON ODT 4 MG TABLET TL PRN (17:15)
[2018-05-01] MEDS ORDERED: LORazepam 0.5 MG TABLET PO PRN (17:20)
--- NOTE | 2018-05-01 17:26 | HISTORY & PHYSICAL EXAMINATION ---
Chief Complaint - Chief Complaint Chief Complaint: severe sob History of Present Illness - Admitted From Admitted From:: PCP office/ER - History Obtained [facility] History obtained from: Patient and Dr. Marks Exam Limitations: None - History of Present Illness HPI Comment/Other: Ms. Soares is a 53-year-old female who has a Life long history of asthma. She had as a child. Has been on medications since that time. Does not always take it daily, but on an as-needed basis. Hospitalized at the age of 3 and then once or twice a year for 15 years from 1989 onward.She has never been intubated for it. She has been tested for allergies and that was done in [facility]. Allergies were for dust mites. She has seen pulmonology [facility], Domenico Cotto MD. Last admission was January 2009 for H1N1 to [facility].She feels that she has significantly deteriorated from a pulmonary perspective. Ever since she had that flu. She is to be able to walk 5 miles a day before that flu. She has had CT scan of the sinuses, high-resolution CT, Aspergillus titers in 2009 and those of all been negative. She is also had CT angiogram of the chest June 2009 which was negative for PEs. Seen for a second opinion by [facility] in July [address] Nataly aguilar MD. No clear cause of why this woman decompensate so easy with her asthma. She has also been seen by [facility] and back to [facility] 06/[address] Baig rechecked her IgE, RAFAEL, ANCA. Switch her from Brio to Advair and stop duo nebs and put her on Spiriva. IV therapy with Xolair discussed. Nothing has really worked. She is to be on maintenance Brio but prefers not to take it unless she needs to. But she usually uses a short acting bronchodilator on an as-needed basis. In the last week she had a viral syndrome much like a cold. And since that time her asthma has decompensated. She went home on April 23 from work. Spent the next 2 days in bed because she was so sick with this cold. Sinus congestion, sore throat, chest congestion, severe cough. Minimal appetite. No fever, no chills, no rigors, no abdominal pain or diarrhea with this. She has been seen in the emergency room twice this week. The second visit was April 29. She presented to [facility] with a complaint of shortness of breath and chest congestion as well as ear pain and was asking for an antibiotic. She had already been seen April 26 as well. Fluid was noted behind her tympanic membranes, no erythema. She had a productive cough, and diffuse expiratory wheezes. She was not in any distress and able to complete full sentences. Her temperature was 97 9. She was given a DuoNeb, a chest x-ray that was negative, and she was put on doxycycline. She was then seen in follow-up in her primary care provider office today. She was not doing any better. Was tachypneic in the PCP office. And her heart rate was 118. She had very silent breath sounds that were very tight, with minimal upper expiratory wheezing. She was surprised that she was so sick. She actually drove herself to the office for follow-up. While sitting in the waiting room she started decompensating so quickly. She cannot believe she got so sick within an hour with severe respiratory distress. She rates herself a an 8 or 9 out of a 10. 10 being intubated. EMS was called and she was brought to the emergency room. She received 1 DuoNeb via EMS, and 3 albuterols [id number] in the emergency room. She also received Solu-Medrol. Although her lung exam was good and that she was not wheezing or tachypnea, the patient still complained of being short of breath. With treatment, she has now felt like she is a 5 out of a 10. In view of the fact that she is now been seen 3 times this last week, she is placed in observation for status asthmaticus. History - Past Medical History Cardiovascular: reports: Hypertension, High cholesterol, Other (Palpitations with Holter monitor showing isolated PVCs, palpitations reported during Holter and negative. December 29, 2006. She then had atypical chest pain. Evaluated by [facility] cardiology, Dr. Hui June 2017. Nuclear stress test with tissue artifact attenuation but no ischemia or wall motion abnormalities. She was noted to have solid and liquid food dysphagia.) Respiratory: reports: Asthma (Spirometry report from April 2005 shows a FVC of 2.56 which is 67 percent of normal. She improved by 29% with a bronchodilator. FEV1 was 1.27 which is 43% of normal. She went up to 58% with a bronchodilator. FEV1/FVC was 49%. With bronchodilator became 60%. Room air sat was 99%. It was analyzed as a severe obstructive lung defect. Flow volume curve showed a decrease in flow rate at peak flow. A more detailed PFT was recommended with a DLCO.), COPD Neuro: reports: None, Peripheral neuropathy Endocrine/Autoimmune: reports: Type 2 diabetes, Other (Primary hyperaldosteronism resulting in severe blood pressure. 24-hour urine collection shows her to have high metanephrines. Ultrasound negative for renal artery stenosis or tumors. She was put on spironolactone. Seen by Dr. NANCY Kaiser. Has not had more than one visit with him.) GI: reports: GERD (Takes Prevacid as needed), Colon polyps (Colonoscopy with Debbie Madera years ago. Most recent one was with Dr. Nabila Lane in December 2017. She has bright red blood per rectum. ), Other (Irritable bowel syndrome with occasional abdominal ache and diarrhea. Encouraged to be on fiber, water, stool softener.CT abdomen and pelvis April 2006 with cystic collections within both the fundus and lower uterine segment of the uterus. Ultrasound recommended. Left adnexal 3 cm cystic lesion. 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 By fall 2005 in early [address] abdomen and pelvic ultrasound showed cystic areas within the uterus. Seen by Dr. Gates. Patient requested definitive hysterectomy done 05/2006) : reports: Renal insuffiency, Other HEENT: reports: Glaucoma Psych: reports: Depression Musculoskeletal: reports: Gout, Chronic back pain (Lumbar spine. Flares are usually treated with Toradol IM. Occasionally goes down left leg. Status post L5-S1 laminectomy and disc removal for left sciatica 1990) Derm: reports: Eczema (Dyshidrotic eczema especially on feet), Other MRSA Hx?: No - Past Surgical History General: reports: Cholecystectomy, Colonoscopy Ortho: reports: Spine surgery (Status post cervical ruptured disc with 2 procedures, one posterior approach and one anterior approach. Status post lumbar discectomy for ruptured disc 1990 as well as laminectomy.), Other /HELP DESK ANALYST: reports: section (2), Hysterectomy - Family & Social History Family History Comment/Other: Mom had asthma, emphysema, psoriasis and hypothyroidism.She is alive and lives with her. Dad has diabetes and heart disease.She is not in contact with him. She thinks he is now. 2 sisters, 2 brothers.Sister has had endometriosis and breast cancer. 3 children. 2 of which are twins. Daughter has asthma. Other 2 children are healthy. Living arrangement: At home Living Situation: With spouse/s.o. Social History Notes: Never smoked. Rarely drinks. Last drink was about 17 years ago since she thinks it may contribute to her asthma. for second time in 2006. 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 She and her live in their own home in [place]. Meds/Allgy - Home Medications Home Medications: Ambulatory Orders Medication Instructions Recorded Confirmed Albuterol Sulfate [Proair Hfa] 2 puffs PO Q3H PRN 08/20/13 05/01/18 Furosemide [Lasix] 40 mg PO QPM 08/20/13 05/01/18 Lansoprazole [Prevacid] 15 mg PO DAILY 08/20/13 05/01/18 Montelukast Sodium [Singulair] 10 mg PO QPM 08/20/13 05/01/18 Spironolactone 100 mg PO DAILY 08/20/13 05/01/18 Cholecalciferol (Vitamin D3) 3,000 unit PO DAILY 12/16/13 05/01/18 [Vitamin D-3] Colchicine [Colcrys] 0.6 mg PO PRN PRN 06/10/15 05/01/18 DULoxetine [Cymbalta] 60 mg PO DAILY 06/10/15 05/01/18 Diltiazem HCl [Cardizem LA] 240 mg PO PRN PRN 07/06/16 05/01/18 Insulin Lispro [Humalog] 0 - 30 unit SUBQ TIDWM 09/16/16 05/01/18 Insulin Glargine [Lantus Solostar] 20 - 50 units SQ QPM 11/23/17 05/01/18 Albuterol 2.5 mg INH Q4H PRN 05/01/18 05/01/18 Doxycycline Hyclate 100 mg PO [id number] 05/01/18 05/01/18 Ipratropium/Albuterol [Duoneb] 3 ml INH Q4H PRN 05/01/18 05/01/18 Prednisone 40 mg ORAL DAILY 05/01/18 05/01/18 - Allergies Allergies/Adverse Reactions: Allergies Allergy/AdvReac Type Severity Reaction Status Date / Time acetaminophen [From Vicodin] Allergy Severe Respiratory Verified 05/01/18 15:28 aclidinium bromide * Allergy Severe Anaphylaxis Verified 05/01/18 15:28 [From Tudorza Pressair] aspirin Allergy Severe Respiratory Verified 05/01/18 15:28 hydrocodone bitartrate * Allergy Severe Respiratory Verified 05/01/18 15:28 [From Vicodin] losartan potassium * Allergy Severe Respiratory Verified 05/01/18 15:28 [From Cozaar] theophylline Allergy Severe Respiratory Verified 05/01/18 15:28 tramadol HCl * [From Ultram] Allergy Severe Respiratory Verified 05/01/18 15:28 azithromycin [From Zithromax] Allergy Intermediate Rash Verified 05/01/18 15:28 codeine Allergy Intermediate Nausea Verified 05/01/18 15:28 levofloxacin [From Levaquin] Allergy Intermediate Rash Verified 05/01/18 15:28 ethyl alcohol AdvReac Respiratory Verified 05/01/18 17:55 Review of Systems - Constitutional Constitutional: reports: Fatigue (For the last week), Malaise (For the last week), Weight gain (In 2010, 2011 when she was put on high-dose steroids. Is been difficult to lose that weight.) - Eyes Eyes: reports: Other ((+)glaucoma, incipient cataracts on eye exams). denies: Pain, Irritation, Amaurosis, Blurred vision - Ears, Nose & Throat Ears, Nose & Throat: reports: Ear pain, Nasal pain, Nasal discharge, Nasal obstruction, Nasal congestion, Postnasal drainage, Sore throat - Cardiovascular Cariovascular: reports: Palpitations, Chest pain (In 2018.), Exertional dyspnea (Echocardiogram September 09, 2011 shows ejection fraction 55-60% without wall motion abnormality. No significant valvular abnormalities.), Other (Because of cough, high blood pressure, she has had renal artery Dopplers which were negative. Angiotensin receptor dwight request submitted. Cortisol, metanephrines also done in urine. Normetanephrine was high at 1650 mg/dL June 2013.). denies: Irregular heart rate, Edema, Lightheadedness, Syncope - Respiratory Respiratory: reports: Cough, Sputum production, Wheezing, Snoring (Quite a bit. Sent for sleep study and November 2010 and no evidence of sleep disordered breathing with an apnea hypotony index of 0.5. No hypoxia. She did have quite loud snoring.), SOB with exertion, Pleuritic pain (Right rib cage. Still present today. But getting better.). denies: Hemoptysis, Orthopnea, SOB at rest, Apnea, Stridor - Gastrointestinal Gastrointestinal: reports: Rectal bleeding (Occasional. Last colonoscopy was in the fall 2017 for this.), Other (Solid and liquid dysphagia with cardiac workup June 2017. Recommended that she see GI for evaluation.). denies: Abdominal pain, Abdominal distention, Constipation, Diarrhea, Change in bowel habits, Black stools, Bloody stools, Nausea, Vomiting, Bile emesis, Shen blood emesis - Genitourinary Genitourinary: denies: Dysuria, Frequency, Urgency, Hematuria, Incontinence - Musculoskeletal Musculoskeletal: reports: Muscle pain (Rib cage from coughing), Gout. denies: Muscle aches, Stiffness, Limited range of motion, Muscle weakness, Joint pain, Joint swelling - Integumentary Integumentary: denies: Rash, Pruritis, Lesions, Pigment changes - Neurological Neurological: denies: General weakness, Focal weakness, Headache, Dizziness, Numbness, Memory problems - Psychiatric Psychiatric: denies: Depression, Anxiety, Suicidal, Delusions Prior Level of Functionality: Still working full-time. Does not use any durable medical goods. Cleans house. Pays bills. Drives a car. Completely independent with regards to activities of daily living. Exam - Vital Signs Reviewed Vital Signs: Yes Vital Signs: Vital Signs x48h Temp Pulse Resp BP Pulse Ox 05/01/18 17:00 98 16 144/92 H 99 05/01/18 16:30 98 17 144/92 H 99 05/01/18 16:12 97 25 H 141/95 H 99 05/01/18 16:10 97 14 05/01/18 15:56 95 24 142/96 H 99 05/01/18 15:27 101 H 26 H 156/72 H 100 05/01/18 15:20 35.5 C L 103 H 28 H 100 - Physical Exam General Appearance: positive: No acute distress, Alert, Other (Moderately overweight white female who looks younger than stated age, sitting comfortably in the bed, legs crisscrossed, eating dinner. Able to speak in full sentences, and occasionally spontaneously left. She says she is feeling so much better than in the emergency room. Still has a deeply nasal tone of voice. Occasional bronchitic cough during exam.) Eyes Bilateral: positive: PERRL, EOMI ENT: positive: Other (Slightly edematous anterior pharyngeal folds. No exudate. Cobblestoning of the upper palate posterior pharynx.Nasal tone of voice.) Neck: positive: No JVD, Lymphadenopathy (R), Lymphadenopathy (L). negative: Stiff neck, Carotid bruit Respiratory: positive: Chest non-tender, No respiratory distress, Wheezes (Bilateral lower lung wilhelm, almost at the end of exhalation is when they come in. She has bronchial tubular breath sounds diffusely in upper and lower lobes. Good air movement in comparison to what was described in the office, and the ER.). negative: Rales, Rhonchi Cardiovascular: positive: Regular rate & rhythm. negative: Gallop/S4, Friction rub Peripheral Pulses: positive: 2+ Abdomen: positive: Non-tender, No organomegaly, Nml bowel sounds, No distention Skin: positive: Warm, Dry. negative: Diaphoresis Extremities: positive: Non-tender, Full ROM, No pedal edema Neurologic/Psychiatric: positive: Oriented x3, CN's nml (2-12), Motor nml Conclusion/Plan - Problem List (1) Status asthmaticus Conclusion/Plan: The inciting event to destabilize her asthma at this point in time seems to be a URI. She said that she is actually had a few months of relatively good stable lung exams with no need for steroids until this terrible chest cold was given to her by her mother who lives with her. Given the fact that she is been seen in the ER twice at [facility], then her PCP office, and now this ER, I think it prudent to bring her in for observation overnight. She destabilized very chay ckly in the PCP office. Plan: Observation status IV steroids Frequent nebulizers with albuterol Add Perforomist and budesonide Continue p.o. doxycycline. She says it is helping. Qualifiers: Asthma severity: moderate Asthma persistence: persistent Qualified Code(s): J45.42 - Moderate persistent asthma with status asthmaticus (2) URI, acute Conclusion/Plan: resume her doxycycline. no change in tx. (3) Hypertension secondary to endocrine disorders Conclusion/Plan: We will make sure she gets her spironolactone. Also her Cardizem CD. Current blood pressure as I dictate this note is 162/85.I did mention that her metanephrines were high on a 24-hour urine collection when I reviewed her records. She said she was not aware of this. But Dr. Kaiser saw all of these records as did her primary care provider and no further follow-up was recommended. (4) Uncontrolled type 2 diabetes mellitus with hyperglycemia, with long-term current use of insulin Conclusion/Plan: She is usually on 20 units of insulin a day. On her own, because of steroids, she is increase her self to 50 units a day. I will start her at 25 units tonight, give her 5 units with each meal, and a sliding scale insulin and see how she does. Complications of her diabetes include peripheral neuropathy but no macular degeneration. (5) Hypokalemia Conclusion/Plan: Supplement p.o. since she is taking good intake. Recheck in a.m. - Lab Results Fish Bones: 05/01/18 16:08 05/01/18 16:08 - EKG Results EKG Interpreted Independently: No Core Measures - Anticipated LOS I expect patient to be DC'd or transferred within 96 hours.: Yes - DVT/VTE - Prophylaxis VTE/DVT Device ordered at admit?: No Not Ordered - Low Risk: Very low risk
[2018-05-01 17:43] LABS: PLATELET ESTIMATE, MANUAL NORMAL (130-450,000) (NORMAL); PLATELET MORPHOLOGY NORMAL APPEARANCE (NORMAL); RBC MORPHOLOGY (MULTIPLE) NORMAL APPEARANCE (NORMAL)
[2018-05-01 17:47] LABS: HEMOGLOBIN A1C 1.52 g/dL; HEMOGLOBIN A1C % 10.3 % (4.6-6.2)
[2018-05-01] MEDS ORDERED: SODIUM CHLORIDE 0.9% 1,000 ML IV SCH (18:00)
[2018-05-01] MEDS: INSULIN ASPART 300 UNIT/3 ML PEN SUBQ SCH ×2 (18:47→21:10)
[2018-05-01] MEDS: BUDESONIDE 0.5 MG/2 ML NEB INH SCH (20:21)
[2018-05-01] MEDS: FORMOTEROL FUMARATE NEB 20 MCG/2 ML INH SCH (20:22)
[2018-05-01] MEDS: ALBUTEROL NEB 2.5 MG/3 ML INH PRN (20:22)
[2018-05-01] MEDS ORDERED: INSULIN GLARGINE 300 UNIT/3 ML PEN SUBQ SCH (21:00)
[2018-05-01] MEDS ORDERED: MONTELUKAST 10 MG TABLET PO SCH (21:00)
[2018-05-01] MEDS ORDERED: INSULIN ASPART 300 UNIT/3 ML PEN SUBQ SCH (21:07)
[2018-05-01] MEDS: methylPREDNISolone SUCCINATE 125 MG/2 ML VIAL IVP SCH (21:11)
[2018-05-01] MEDS: DOXYCYCLINE 100 MG TABLET PO SCH ×2 (21:11→22:45)
[2018-05-01] MEDS ORDERED: DULoxetine 30 MG CAPSULE PO SCH (22:00)
[2018-05-02] MEDS: SODIUM CHLORIDE FLUSH 0.9% 10 ML SYRINGE IVP SCH ×2 (04:20→08:23)
[2018-05-02] MEDS: ALBUTEROL NEB 2.5 MG/3 ML INH PRN (04:24)
[2018-05-02] MEDS: methylPREDNISolone SUCCINATE 125 MG/2 ML VIAL IVP SCH (06:04)
[2018-05-02] MEDS: BUDESONIDE 0.5 MG/2 ML NEB INH SCH (07:15)
[2018-05-02] MEDS: FORMOTEROL FUMARATE NEB 20 MCG/2 ML INH SCH (07:15)
[2018-05-02 08:13] VITALS: BP 141/94
[2018-05-02] MEDS: INSULIN ASPART 300 UNIT/3 ML PEN SUBQ SCH ×2 (08:19)
[2018-05-02] MEDS: DOXYCYCLINE 100 MG TABLET PO SCH (08:21)
--- NOTE | 2018-05-02 08:30 | Discharge Plan ---
Discharge Plan Disposition: Home, Self Care Condition: Good Prescriptions: Fluticasone/Salmeterol [Advair 500-50 Diskus] 1 each IH BID #1 blst.w.dev Insulin Glargine [Lantus Solostar] 50 units SQ QPM #3 pen Prednisone [Danyel] 2 mg PO UD #311 tablet. Diet: Diabetic Activity Restrictions: Additional Comments (Activity as tolerated with return to work on 05/07/18) Shower Restrictions: No Driving Restrictions: No Additional Instructions or Follow Up instructions: You were placed under observation because of severe status asthmaticus. You have already had 2 emergency room visits, a visit to your primary care provider office, and now in the ER 1 more time this week. Your lungs have calm down a bit with the use of high-dose steroids, and back to back nebulizer treatments with albuterol. We are sending you home with a tapered dose of steroids. You are started at 30 mg of prednisone a day. Take that for 3 days then go to 28 mg for 3 days, then 26 mg for 3 days, then 24 mg for 3 days, etc. You will also finish the doxycycline that was prescribed to you from 1 of your emergency room visits at [facility]. Unfortunately, the steroids have caused your diabetes to become quite decompensated. Your glycosylated hemoglobin is greater than 10% at this point. You have accordingly adjusted your Lantus to 50 units a day. I would concur with continuing 50 units a day and have given you a new prescription to make sure you do not run out of insulin. Resume or taper down your Lantus once the steroids stopped. We are also sending you home on Advair. You need to be on a long-acting bronchodilator and inhaled steroid. I have written a prescription for the 500 mcg strength steroid. Please see your primary care provider in follow-up to then taper down to 250 mcg and 100 mcg when appropriate. No Smoking: If you smoke, Please STOP! Call for help. Follow-up with: Aileen Mars PA-C [Primary Care Provider] -
[2018-05-02] MEDS ORDERED: DULoxetine 30 MG CAPSULE PO SCH (09:00)
[2018-05-02] MEDS ORDERED: POLYETHYLENE GLYCOL 3350 17 GM PACKET PO SCH (09:00)
--- NOTE | 2018-05-02 12:10 | DISCHARGE SUMMARY ---
Physician: Arlene Hilton MD DATE OF ADMISSION: 05/01/2018 DATE OF DISCHARGE: 05/02/2018 DISCHARGE DIAGNOSES 1. Status asthmaticus. 2. Upper respiratory infection. 3. Hypertension secondary to endocrine disorders. 4. Uncontrolled type 2 diabetes mellitus with hyperglycemia, with long-term current use of insulin with complications of peripheral neuropathy. 5. Hypokalemia. DISCHARGE MEDICATIONS 1. Albuterol via nebulizer every 4 hours as needed. 2. ProAir HFA inhaler two puffs every 3 hours as needed. 3. Vitamin D 3000 units daily. 4. Colcrys 0.6 mg p.o. daily p.r.n. gout pain. 5. Cardizem-LA 240 mg p.o. daily. 6. Doxycycline hyclate 100 mg p.o. b.i.d. to complete therapy already prescribed at [place] emergency room. 7. Cymbalta 60 mg daily. 8. Lasix 40 mg daily. 9. Humalog lispro insulin. Anywhere from 0-30 units subcutaneously t.i.d. before meals, depending on carb intake and glucose check. 10. DuoNeb via nebulizer every 4 hours as needed. 11. Prevacid 15 mg daily. 12. Singulair 10 mg daily. 13. Spironolactone 100 mg daily. NEW PRESCRIPTIONS 1. Advair Diskus inhaler 500/50 one inhalation b.i.d. 2. Lantus SoloSTAR 50 units subcutaneously q.p.m. increased from 20 units subcutaneously q.p.m. 3. Prednisone 2 mg tablets initally written for and changed to 2.5 mg since 2 mg not available at pharmacy. Dose start at 37.5 mg a day for 3 days, then taper by 1 tablet every 3 days. HOSPITAL COURSE: This is a 53-year-old female who has had asthma since approximately the age of 3. She has never been intubated for her asthma but has been hospitalized a couple of times in her childhood, and a few more times in her adulthood. Usually short stays. Her longest stay was in 2008 for severe, severe asthma exacerbated by H1N1 infection. She notes that she has had a marked decrease in cardiovascular endurance and reduced lung flows ever since the H1N1 and has never really bounced back. She has seen multiple pulmonologists including [facility], 2 pulmonologists there, [facility], [facility], and none have really been able to stabilize her lung disease successfully. She has had spiral CTs of the chest, CT angiograms, serology studies including P-ANCA, ANCA, RAFAEL, Aspergillus titers, cell counts for eosinophilia, etc. CTs of the sinuses have been done and negative. She presents with yet another episode of asthma. She became sick with a URI given to her by her mother. She feels that she has actually had a good few months. She has been on no steroids. Using albuterol p.r.n. Unfortunately, she became very, very ill with that URI and was in bed April 23 and . She ended up being seen at [facility] emergency room twice. Seen by her PCP today where she was in such flagrant status asthmaticus EMS was called. In our emergency room, she has responded to high-dose steroids, 3 [id number] albuterol treatments, and a DuoNeb in the ambulance. She is still wheezing, and her lungs have gone from being silent with use of accessory muscles to have outright audible wheezing. She was placed in observation overnight. X-ray was not repeated because of 2 x- rays at [facility]. She was continued on her doxycycline, high dose steroids and albuterol as needed. She was also placed on Perforomist and budesonide. The patient is now stable to be discharged to home. She has only faint scattered wheezing of the lower lung wilhelm, but no use of accessory muscles and she is sitting comfortably in bed, speaking in full sentences and laughing spontaneously. REVIEW OF SYSTEMS NECK: Supple. LUNGS: Clear other clear other than the wheezing. No crackles. rhonchi or wheezing. Last night quite a bit of tubular breath sounds; this morning much clear. EXTREMITIES: Without edema. She is to be sent home on a new Advair prescription. Taper prednisone starting at 37.5 mg and decrease by 1 pill every 3 days. Glycosylated Hgb greater than 10% and needs to be addressed in the face of continued steroid use. I have written new prescriptions for her Lantus to increase her Lantus. In reviewing her old records, there was elevation of metanephrines in her urine when she was being evaluated for her primary hyperaldosteronism. I asked the patient to please make sure she checks with her physician about that one elevated lab. The patient says that Dr. Kaiser from nephrology knew about the lab report as well. TD: 05/02/2018 10:36 TOMER
== END 2018-05-02 09:47 | disposition home or self-care (01) ==
LOC: EDUNIT# → ED 15:19 → MS2 17:15
PROVIDERS: ADMIT Specialist; ATTEND Specialist
DX: J45.902 Unspecified asthma with status asthmaticus (principal); J06.9 Acute upper respiratory infection, unspecified; J44.9 Chronic obstructive pulmonary disease, unspecified; I15.2 Hypertension secondary to endocrine disorders; E11.65 Type 2 diabetes mellitus with hyperglycemia; E87.6 Hypokalemia; E11.42 Type 2 diabetes mellitus with diabetic polyneuropathy; N28.9 Disorder of kidney and ureter, unspecified; E78.00 Pure hypercholesterolemia, unspecified; E26.09 Other primary hyperaldosteronism; K21.9 Gastro-esophageal reflux disease without esophagitis; K58.0 Irritable bowel syndrome with diarrhea; H40.9 Unspecified glaucoma; F32.9 Major depressive disorder, single episode, unspecified; M10.9 Gout, unspecified; G89.29 Other chronic pain; M54.5 Low back pain; L30.1 Dyshidrosis [pompholyx]; Z79.4 Long term (current) use of insulin; Z79.51 Long term (current) use of inhaled steroids; Z79.52 Long term (current) use of systemic steroids; Z83.3 Family history of diabetes mellitus; Z82.5 Family history of asthma and other chronic lower respiratory diseases; R06.83 Snoring; R82.998 Other abnormal findings in urine
CPT/HCPCS: 36415; 80053; 83036; 83690; 84132; 84484; 85025; 93005; 94640; 96361; 96374; 96376; 99284; A9270; G0378; J1815; J7626

== ENCOUNTER 2019-05-28 08:00 | Outpatient (CLI) | payer BC ==
[2019-05-28 12:18] LABS: HB2 TOTAL 16.2 g/dL; HEMOGLOBIN A1C 1.68 g/dL; HEMOGLOBIN A1C % 11.6 % (4.6-6.2)
[2019-05-28 12:27] LABS: ALBUMIN 4.2 g/dL (3.2-5.5); ALBUMIN/GLOBULIN RATIO 1.3 (1.0-2.2); ALKALINE PHOSPHATASE 125 IU/L (42-121); ALT ALANINE AMINOTRANSFERASE 49 IU/L (10-60); AST ASPARTATE AMINOTRANSFERASE 31 IU/L (10-42); BILIRUBIN,TOTAL 0.7 mg/dL (0.2-1.0); BUN - BLOOD UREA NITROGEN 16 mg/dL (6-20); CALCIUM 9.4 mg/dL (8.5-10.3); CARBON DIOXIDE - CO2 28 mmol/L (21-32); CHLORIDE 95 mmol/L (101-111); CHOL/HDL RATIO 6.1 (<4.4); CHOLESTEROL 261 mg/dL; GFR - MDRD 57 (>89); GLUCOSE 340 mg/dL (70-100); HDL CHOLESTEROL 43 mg/dL; LDL CHOLESTEROL,CALCULATED 150 mg/dL; LDL/HDL RATIO 3.5 (<4.4); SODIUM 133 mmol/L (135-145); TOTAL PROTEIN 7.4 g/dL (6.7-8.2); VLDL CHOLESTEROL 68 mg/dL
== END 2019-05-28 23:59 | disposition home or self-care (01) ==
LOC: LAB.WCP 08:00
PROVIDERS: ATTEND Physician Assistant Medical
DX: E11.49 Type 2 diabetes mellitus with other diabetic neurological complication (principal); E78.5 Hyperlipidemia, unspecified
CPT/HCPCS: 36415; 80053; 80061; 83036; 83721

== ENCOUNTER 2019-09-11 08:00 | Outpatient (CLI) | payer BC ==
[2019-09-11 12:22] LABS: ALBUMIN/GLOBULIN RATIO 1.4 (1.0-2.2); ALKALINE PHOSPHATASE 79 IU/L (42-121); ALT ALANINE AMINOTRANSFERASE 32 IU/L (10-60); AST ASPARTATE AMINOTRANSFERASE 25 IU/L (10-42); BILIRUBIN,TOTAL 0.8 mg/dL (0.2-1.0); BUN - BLOOD UREA NITROGEN 19 mg/dL (6-20); CALCIUM 9.3 mg/dL (8.5-10.3); CARBON DIOXIDE - CO2 28 mmol/L (21-32); CHLORIDE 101 mmol/L (101-111); CHOL/HDL RATIO 6.8 (<4.4); CHOLESTEROL 253 mg/dL; CREATININE 1.1 mg/dL (0.4-1.0); GLUCOSE 125 mg/dL (70-100); HDL CHOLESTEROL 37 mg/dL; LDL CHOLESTEROL,CALCULATED 180 mg/dL; LDL/HDL RATIO 4.9 (<4.4); SODIUM 137 mmol/L (135-145); TOTAL PROTEIN 6.9 g/dL (6.7-8.2); URIC ACID 9.4 mg/dL (2.6-7.2); VLDL CHOLESTEROL 36 mg/dL
[2019-09-11 12:27] LABS: HB2 TOTAL 14.2 g/dL; HEMOGLOBIN A1C % 8.6 % (4.6-6.2)
== END 2019-09-11 23:59 | disposition home or self-care (01) ==
LOC: LAB.WCP 08:00
PROVIDERS: ATTEND Physician Assistant Medical
DX: E11.49 Type 2 diabetes mellitus with other diabetic neurological complication (principal)
CPT/HCPCS: 36415; 80053; 80061; 83036; 83721; 84550

== ENCOUNTER 2019-12-13 07:41 | Outpatient (CLI) | payer BC ==
[2019-12-13 12:19] LABS: ALBUMIN 4.2 g/dL (3.2-5.5); ALBUMIN/GLOBULIN RATIO 1.4 (1.0-2.2); ALKALINE PHOSPHATASE 84 IU/L (42-121); ALT ALANINE AMINOTRANSFERASE 13 IU/L (10-60); AST ASPARTATE AMINOTRANSFERASE 15 IU/L (10-42); BILIRUBIN,TOTAL < 0.2 mg/dL (0.2-1.0); BUN - BLOOD UREA NITROGEN 16 mg/dL (6-20); CARBON DIOXIDE - CO2 30 mmol/L (21-32); CHLORIDE 97 mmol/L (101-111); CHOL/HDL RATIO 6.5 (<4.4); CHOLESTEROL 234 mg/dL; CREATININE 1.2 mg/dL (0.4-1.0); GLUCOSE 107 mg/dL (70-100); HDL CHOLESTEROL 36 mg/dL; LDL CHOLESTEROL,CALCULATED 165 mg/dL; LDL/HDL RATIO 4.6 (<4.4); SODIUM 135 mmol/L (135-145); TOTAL PROTEIN 7.2 g/dL (6.7-8.2); VLDL CHOLESTEROL 33 mg/dL
[2019-12-13 12:36] LABS: CREATININE,URINE 131.9 mg/dL
[2019-12-13 12:40] LABS: MICROALBUMIN,URINE < 0.2 mg/dL (0-300.0)
[2019-12-13 20:00] LABS: HEMOGLOBIN A1c% 6.4 % (4.27-6.07)
== END 2019-12-13 23:59 | disposition home or self-care (01) ==
LOC: LAB.WCP 07:41
PROVIDERS: ATTEND Family Medicine
DX: E11.49 Type 2 diabetes mellitus with other diabetic neurological complication (principal); E78.5 Hyperlipidemia, unspecified; I10 Essential (primary) hypertension; J45.901 Unspecified asthma with (acute) exacerbation; M10.9 Gout, unspecified
CPT/HCPCS: 36415; 80053; 80061; 82043; 82570; 83036; 83721; 84443; 84550

== ENCOUNTER 2020-04-20 09:10 | Outpatient (CLI) | payer BC ==
--- NOTE | 2020-04-20 10:16 | XRAY Report ---
PROCEDURE: Chest 2 View X-Ray INDICATIONS: ASTHMA WITH ACUTE EXACERBATION TECHNIQUE: 2 view(s) of the chest. COMPARISON: 08/02/2017 FINDINGS: Surgical changes and devices: None. Lungs and pleura: No pleural effusions or pneumothorax. Lungs are clear. Mediastinum: Mediastinal contours are normal. Heart size is normal. Bones and chest wall: No suspicious bony abnormalities. Soft tissues appear unremarkable. IMPRESSION: Normal chest. Reviewed by: Charissa Lawrence MD on 04/20/2020 10:15 AM [facility] Approved by: Charissa Lawrence MD on 04/20/2020 10:15 AM [facility] Station ID: [id number]
== END 2020-04-20 23:59 | disposition home or self-care (01) ==
LOC: DI.N 09:10
PROVIDERS: ATTEND Family Medicine
DX: J45.901 Unspecified asthma with (acute) exacerbation (principal); Z20.822 Contact with and (suspected) exposure to COVID-19
CPT/HCPCS: 87275; 87276

== ENCOUNTER 2020-05-05 08:00 | Outpatient (CLI) | payer BC | END 2020-05-05 23:59 | disposition home or self-care (01) | LOC: LAB.R 08:00 | PROVIDERS: ATTEND Family Medicine | DX: J45.901 Unspecified asthma with (acute) exacerbation (principal); Z20.822 Contact with and (suspected) exposure to COVID-19 | CPT/HCPCS: 87275; 87276 ==

== ENCOUNTER 2020-05-05 14:08 | Outpatient (CLI) | payer BC ==
--- NOTE | 2020-05-05 14:57 | XRAY Report ---
PROCEDURE: Chest 2 View X-Ray INDICATIONS: Asthma, respiratory symptoms TECHNIQUE: 2 view(s) of the chest. COMPARISON: None. FINDINGS: Surgical changes and devices: None. Lungs and pleura: No pleural effusions or pneumothorax. Lungs are clear. Mediastinum: Mediastinal contours are normal. Heart size is normal. Bones and chest wall: No suspicious bony abnormalities. Soft tissues appear unremarkable. IMPRESSION: No acute cardiopulmonary process demonstrated radiographically. Reviewed by: Joo Chavez MD on 05/05/2020 2:56 PM [facility] Approved by: Joo Chavez MD on 05/05/2020 2:56 PM PST Station ID: [id number]
== END 2020-05-05 14:09 | disposition home or self-care (01) ==
LOC: DI.N 14:08
PROVIDERS: ATTEND Family Medicine
DX: J45.901 Unspecified asthma with (acute) exacerbation (principal)

== ENCOUNTER 2020-05-28 07:22 | Outpatient (CLI) | payer BC ==
[2020-05-28 07:57] LABS: ALBUMIN 4.7 g/dL (3.2-5.5); ALBUMIN/GLOBULIN RATIO 1.6 (1.0-2.2); ALKALINE PHOSPHATASE 88 IU/L (42-121); ALT ALANINE AMINOTRANSFERASE 26 IU/L (10-60); AST ASPARTATE AMINOTRANSFERASE 19 IU/L (10-42); BILIRUBIN,TOTAL 0.7 mg/dL (0.2-1.0); BUN - BLOOD UREA NITROGEN 18 mg/dL (6-20); CALCIUM 9.6 mg/dL (8.5-10.3); CARBON DIOXIDE - CO2 27 mmol/L (21-32); CHLORIDE 101 mmol/L (101-111); CHOL/HDL RATIO 7.7 (<4.4); CHOLESTEROL 315 mg/dL; CREATININE 1.1 mg/dL (0.4-1.0); GLUCOSE 159 mg/dL (70-100); HDL CHOLESTEROL 41 mg/dL; LDL CHOLESTEROL,CALCULATED 206 mg/dL; TOTAL PROTEIN 7.7 g/dL (6.7-8.2); VLDL CHOLESTEROL 68 mg/dL
[2020-05-28 14:17] LABS: HEMOGLOBIN A1c% 6.6 % (4.27-6.07)
== END 2020-05-28 07:23 | disposition home or self-care (01) ==
LOC: LAB 07:22
PROVIDERS: ATTEND Physician Assistant Medical
DX: E11.49 Type 2 diabetes mellitus with other diabetic neurological complication (principal); M10.9 Gout, unspecified
CPT/HCPCS: 36415; 80053; 80061; 83036; 83721; 84550